=== PATIENT | female | born 1975 | race Caucasian/White ===

== ENCOUNTER → 2024-03-23 07:34 | Outpatient (REF) | payer OTHER, SELFPAY | LOC: WDC 07:34 | PROVIDERS: ATTENDING PHYSICIAN Nurse Practitioner Family; FAMILY PHYSICIAN Internal Medicine | DX: Z12.31 Encounter for screening mammogram for malignant neoplasm of breast (principal) | CPT/HCPCS: 77063; 77067 ==

== ENCOUNTER → 2025-04-14 13:48 | Outpatient (REF) | payer OTHER, SELFPAY | LOC: WDC 13:48 | PROVIDERS: ATTENDING PHYSICIAN Obstetrics & Gynecology; FAMILY PHYSICIAN Internal Medicine | DX: Z12.31 Encounter for screening mammogram for malignant neoplasm of breast (principal) | CPT/HCPCS: 77063; 77067 ==

== ENCOUNTER 2025-05-02 06:20 | Day surgery (SDC) | payer OTHER, SELFPAY | END 2025-05-02 09:04 | disposition home or self-care (01) | LOC: GI 06:20 | PROVIDERS: ATTENDING PHYSICIAN Internal Medicine Gastroenterology | DX: Z12.11 Encounter for screening for malignant neoplasm of colon (principal); K63.5 Polyp of colon; K57.30 Diverticulosis of large intestine without perforation or abscess without bleeding; D12.8 Benign neoplasm of rectum | CPT/HCPCS: 45385; 88305 ==